=== PATIENT | female | born 1945 | race Caucasian/White ===

== ENCOUNTER 2016-12-04 06:30 | Day surgery (SDC) | payer OTHER ==
[2016-11-29 15:00] VITALS: BMI 25.7
[2016-12-04] MEDS ORDERED: oxyCODONE HCL 5 MG TABLET PO PRN (08:04)
[2016-12-04] MEDS ORDERED: ONDANSETRON 4 MG/2 ML VIAL IVPUSH PRN (08:04)
[2016-12-04] MEDS ORDERED: LACTATED RINGERS SOLUTION 1,000 ML IV SCH (08:15)
[2016-12-04] MEDS ORDERED: MIDAZOLAM HCL 2 MG/2 ML SINGLE DOSE VIAL ONE ×2 (08:35→09:21)
[2016-12-04] MEDS ORDERED: LEVOFLOXACIN 500 MG PREMIX BAG IVPB ONE (08:56)
--- NOTE | 2016-12-04 11:39 | OP ---
Operative Note - Note: Operative Date: 12/04/16 Pre-Operative Diagnosis: right renal stone Operation: right ESWL Post-Operative Diagnosis: Same as Pre-op Surgeon: [place] Dong Anesthesia: Fractional
[2016-12-04 12:32] VITALS: TEMP 98.4
[2016-12-04 17:35] VITALS: BP 129/63; PULSE 71
--- NOTE | 2016-12-05 11:42 | OP ---
DATE OF OPERATION: 12/04/2016 PREOPERATIVE DIAGNOSIS: Right renal stone. POSTOPERATIVE DIAGNOSIS: Right renal stone. PROCEDURE: Right extracorporeal shock wave lithotripsy. ATTENDING: Keon Garcia MD ANESTHESIA: Fractional. DESCRIPTION OF OPERATION: The patient was brought in the operating room, placed in supine position on the operating room table. Ultrasonography and fluoroscopy were performed. A 5-mm right mid-pole stone was identified. General anesthesia and preoperative antibiotics were then administered. Extracorporeal shock wave lithotripsy was then performed, 2500 impulses at 16 joules of power were administered to the stone with excellent fragmentation under real-time ultrasonography and fluoroscopy. No complications were noted. The disposition of the patient was to the recovery room. KEON GARCIA M.D. [id number]
== END 2016-12-04 16:30 | disposition home or self-care (01) ==
LOC: JASU-SURG 06:30
PROVIDERS: ATTEND Urology
PROC: 0TF3XZZ Fragmentation in Right Kidney Pelvis, External Approach (ICD-10-PCS; principal; 2016-12-04 08:45)
DX: N20.0 Calculus of kidney (principal)
CPT/HCPCS: 94760